=== PATIENT | female | born 2000 | race Caucasian/White ===

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

== ENCOUNTER 2021-06-05 17:18 | Emergency (ER) | payer MEDICAID ==
[~2021-06-05] VITALS: Ht 170.2 cm; Wt 90.7 kg
[~2021-06-05 17:18] MED LIST changes: +AMOX250S5 PO; +DEXAINTSOL PO; +HYDR15SO8 PO; +TETRACAINESUCKERS MT
[2021-06-05 17:47] LABS: BACTERIA,URINE FEW /HPF; BILIRUBIN,URINE NEGATIVE (NEGATIVE); CLARITY,URINE CLEAR; COLOR,URINE YELLOW; GLUCOSE, URINE (UA) NEGATIVE (NEGATIVE); KETONES,URINE NEGATIVE (NEGATIVE); LEUKOCYTE ESTERASE ,URINE NEGATIVE (NEGATIVE); NITRITE,URINE NEGATIVE (NEGATIVE); PH,URINE 6.5 (5-9); PROTEIN,URINE NEGATIVE (NEGATIVE); SQUAMOUS EPITHELIAL CELL,UR 25-50 /HPF
[2021-06-05] MEDS ORDERED: NS IV 1000 ML 1,000 ML IV STA (17:53)
[2021-06-05 18:00] VITALS: BP_SYST 138; BP_SYST 143; BP_SYST 154; BP_DIAS 45; BP_DIAS 69; BP_DIAS 84
--- NOTE | 2021-06-05 18:00 | ED General ---
General Chief Complaint: Female Reproductive Stated Complaint: IRREGULAR MENSTRUATION; SUPRAPUBIC PAIN Nursing Triage Note: PT ARRIVED BY PRIVATE VEHICLE WITH CHIEF COMPLAINT OF IRREGULAR MENSTRAUL AND ABDOMINAL PAIN. PT WAS ALERT, ORIENTED X 4 AND AMBULATORY. PT STATED WHEN SHE WAS YOUNGER SHE NEVER STARTED HER PERIOD, SO MARY KAY HA APRN, PUT HER ON CONTROL. SHE DID NOT LIKE THE EMOTIONAL SIDE EFFECTS OF CONTROL, SO TOLD MARY KAY SHE DID NOT WANT TO TAKE IT ANYMORE. PT ONE WEEK AGO STARTED SPOTTING AND YESTERDAY STARTED TO HAVE A PERIOD. SHE STATED SHE IS CHANGING HER TAMPONS EVERY 30 MINUTES TO ONE HOUR. PT STATED SHE IS HAVING BLOOD CLOTS, CRAMPS, SHARP PAINS. PT STATED HER PAIN WILL STARTS ON ONE SIDE AND WILL MOVE TO THE OTHER SIDE. PT DENIES ALLERGIES, SMOKING, ALCOHOL OR DRUG USE. PT'S VITALS WERE DONE. URINE WAS OBTAINED WITH BEDSIDE TEST. REPORT WAS GIVEN TO PROVIDER. Source of Information: Patient History of Present Illness Date Seen by Provider: Jun 05, 2021 Time Seen by Provider: 17:20 Initial Comments 20-year-old female presenting with diffuse abdominal pain and heavy menstrual bleeding. She states that she had been on control to make her have menstrual cycles and had been taken off about 6 to 12 months ago. Since then she had not had a period until she started bleeding this last week. She has been having clots and heavy menstrual bleeding. She has diffuse abdominal pain and discomfort. She is anxious and worried about losing too much blood. She has had 2 change her tampon every 1-2 hours. She has an appointment to see Mary Kay Ha for follow-up but could not get an appointment until June 16. Since she was feeling worse today she came to the emergency department as she was worried that she might be losing too much blood. She has denies any pain with urination. She has no nausea, vomiting, diarrhea, constipation, fever, chills. Timing/Duration: 1 Week Severity: Moderate Modifying Factors: worse with Movement Associated Systoms: No Chest Pain, No Cough, No Diaphoresis, No Fever/Chills, No Headaches, No Loss of Appetite; Malaise; No Nausea/Vomiting, No Seizure, No Shortness of Air, No Syncope Allergies and Home Medications Allergies Coded Allergies: No Known Drug Allergies (Unverified , 02/28/20) Home Medications Amoxicillin 250 Mg/5 Ml Susp, 1 TSP PO BID Prescribed by: LJ CHRISTENSEN on 03/13/20825 Dexamethasone 1 Mg/1 Ml Carrie, 2 TSP PO DAILY PRN for PAIN Mix 4MG/2.5CC water Prescribed by: LJ CHRISTENSEN on 03/13/20825 Hydrocodone/Acetaminophen 15 Ml Solution, 2-3 TSP PO Q4H 8 OZ BOTTLE Prescribed by: LJ CHRISTENSEN on 03/13/20825 Tetracaine Sucker Ea, 1 EA MT UD PRN for PAIN Tetracain Suckers These suckers are custom made and require a prescription. Moisten the sucker first and then suck on it gently as far back in the mouth as possible for 2-3 days. You can repeadt it in about an hour. This will take the edge off but not completely numb the throat. Prescribed by: LJ CHRISTENSEN on 03/13/20825 [ Control Pill] , 1 TAB PO DAILY, (Reported) Patient Home Medication List Home Medication List Reviewed: Yes Review of Systems Review of Systems Constitutional: No chills, No diaphoresis, No dizziness, No fever; malaise EENTM: no symptoms reported Respiratory: no symptoms reported Cardiovascular: palpitations Gastrointestinal: see HPI Genitourinary: see HPI Musculoskeletal: no symptoms reported Skin: no symptoms reported Psychiatric/Neurological: Anxiety Past Fihdqgg-Cretnj-Qmwcey Hx Patient Social History Tobacco Use?: No Smoking Status: Never a Smoker Substance use?: No Alcohol Use?: No Pt feels they are or have been: No Seasonal Allergies Seasonal Allergies: No Past Medical History Surgeries: Yes (WISDOM TEETH) Respiratory: No Currently Using CPAP: No Currently Using BIPAP: No Cardiac: No Neurological: No Female Reproductive Disorders: Denies Sexually Transmitted Disease: No HIV/AIDS: No Genitourinary: No Gastrointestinal: No Musculoskeletal: No Endocrine: No HEENT: Yes (GLASSES, HYPERTROPHY TONSILS AND ADENOIDS) Loss of Vision: Denies Hearing Impairment: Deaf Cancer: No Psychosocial: No Integumentary: No Blood Disorders: No Adverse Reaction/Blood Tranf: No (N/A) Physical Exam Vital Signs Vital Signs - First Documented 06/05/21 17:44 Temp 36.6 Pulse 120 Resp 16 B/P (MAP) 154/82 (106) Pulse Ox 100 O2 Delivery Room Air Capillary Refill : Less Than 3 Seconds Height, Weight, BMI Height: '" Weight: lbs. oz. kg; 31.00 BMI Method: General Appearance: Anxious, Obese HEENT: PERRL/EOMI, Pharynx Normal Neck: Full Range of Motion, Normal Inspection, Non Tender, Supple Respiratory: Chest Non Tender, Lungs Clear, Normal Breath Sounds, No Accessory Muscle Use, No Respiratory Distress Cardiovascular: Normal Peripheral Pulses, Tachycardia Gastrointestinal: Normal Bowel Sounds, No Pulsatile Mass, Soft; No Distended, No Guarding, No Rebound; Tenderness (Diffuse mild tenderness) Rectal: Deferred Back: No CVA Tenderness, No Vertebral Tenderness Extremity: Normal Capillary Refill, Normal Inspection, No Pedal Edema Neurologic/Psychiatric: Alert, Oriented x3 Skin: Normal Color, Warm/Dry Progress/Results/Core Measures Suspected Sepsis SIRS Temperature: Pulse: 120 Respiratory Rate: 16 Laboratory Tests 06/05/21 17:58: White Blood Count 9.4 Blood Pressure 154 /82 Mean: 106 Laboratory Tests 06/05/21 17:58: Creatinine 1.02, Platelet Count 332, Total Bilirubin 0.3 Results/Orders Lab Results Laboratory Tests Test 06/05/21 17:23 06/05/21 17:58 Range/Units Urine Color YELLOW Urine Clarity CLEAR Urine pH 6.5 5-9 Urine Specific [place] 1.015 L 1.016-1.022 Urine Protein NEGATIVE NEGATIVE Urine Glucose (UA) NEGATIVE NEGATIVE Urine Ketones NEGATIVE NEGATIVE Urine Nitrite NEGATIVE NEGATIVE Urine Bilirubin NEGATIVE NEGATIVE Urine Urobilinogen 1.0 < = 1.0 MG/DL Urine Leukocyte Esterase NEGATIVE NEGATIVE Urine RBC (Auto) NEGATIVE NEGATIVE Urine RBC NONE /HPF Urine WBC 10-25 H /HPF Urine Squamous Epithelial Cells 25-50 H /HPF Urine Crystals NONE /LPF Urine Bacteria FEW H /HPF Urine Casts NONE /LPF Urine Mucus LARGE H /LPF Urine Culture Indicated NO White Blood Count 9.4 4.3-11.0 10^3/uL Red Blood Count 4.74 3.80-5.11 10^6/uL Hemoglobin 14.4 11.5-16.0 g/dL Hematocrit 41 35-52 % Mean Corpuscular Volume 87 80-99 fL Mean Corpuscular Hemoglobin 30 25-34 pg Mean Corpuscular Hemoglobin Concent 35 32-36 g/dL Red Cell Distribution Width 12.0 10.0-14.5 % Platelet Count 332 130-400 10^3/uL Mean Platelet Volume 63.6 H 9.0-12.2 fL Immature Granulocyte % (Auto) 6 % Neutrophils (%) (Auto) 28 L 42-75 % Lymphocytes (%) (Auto) 7 L 12-44 % Monocytes (%) (Auto) 1 0-12 % Eosinophils (%) (Auto) 1 0-10 % Basophils (%) (Auto) 0 0-10 % Neutrophils # (Auto) 2.7 1.8-7.8 X 10^3 Lymphocytes # (Auto) 0.7 L 1.0-4.0 X 10^3 Monocytes # (Auto) 0.1 0.0-1.0 X 10^3 Eosinophils # (Auto) 0.1 0.0-0.3 10^3/uL Basophils # (Auto) 0.0 0.0-0.1 10^3/uL Sodium Level 138 135-145 MMOL/L Potassium Level 3.7 3.6-5.0 MMOL/L Chloride Level 102 98-107 MMOL/L Carbon Dioxide Level 24 21-32 MMOL/L Anion Gap 12 5-14 MMOL/L Blood Urea Nitrogen 9 7-18 MG/DL Creatinine 1.02 0.60-1.30 MG/DL Estimat Glomerular Filtration Rate 70 BUN/Creatinine Ratio 9 Glucose Level 112 H 70-105 MG/DL Calcium Level 9.5 8.5-10.1 MG/DL Corrected Calcium 8.5-10.1 MG/DL Total Bilirubin 0.3 0.1-1.0 MG/DL Aspartate Amino Transf (AST/SGOT) 14 5-34 U/L Alanine Aminotransferase (ALT/SGPT) 15 0-55 U/L Alkaline Phosphatase 66 40-136 U/L Total Protein 7.4 6.4-8.2 GM/DL Albumin 4.6 H 3.2-4.5 GM/DL Lipase 50 8-78 U/L My Orders Orders - WIL WAYNE MD Ua Culture If Indicated (06/05/21 17:30) Urine Bedside (06/05/21 17:30) Comprehensive Metabolic Panel (06/05/21 17:52) Lipase (06/05/21 17:52) Ed Iv/Invasive Line Start (06/05/21 17:52) Cbc With Automated Diff (06/05/21 17:52) Ct Abdomen/Pelvis W (06/05/21 17:52) Protime With Inr (06/05/21 17:52) Partial Thromboplastin Time (06/05/21 17:52) Ns Iv 1000 Ml (Sodium Chloride 0.9%) (06/05/21 17:53) Orthostatic Vital Signs (Adult (06/05/21 17:53) Iohexol Injection (Omnipaque 350 Mg/Ml 1 (06/05/21 18:15) Received Contrast (Hold Metformin- Contr (06/05/21 18:15) Sodium Chloride Flush (Catheter Flush Sy (06/05/21 18:15) Ns (Ivpb) (Sodium Chloride 0.9% Ivpb Bag (06/05/21 18:15) Iohexol Injection (Omnipaque 350 Mg/Ml 1 (06/05/21 18:45) Received Contrast (Hold Metformin- Contr (06/05/21 18:45) Ns (Ivpb) (Sodium Chloride 0.9% Ivpb Bag (06/05/21 18:45) Medications Given in ED Current Medications Medications Dose Ordered Sig/Ada Route Start Time Stop Time Status Last Admin Dose Admin Iohexol 100 ml ONCE ONCE IV 06/05/21 18:15 06/05/21 18:16 DC 06/05/21 18:41 100 ML Iohexol 100 ml ONCE ONCE IV 06/05/21 18:45 06/05/21 19:14 DC 06/05/21 18:52 100 ML Sodium Chloride 10 ml NEEDED PRN IV 06/05/21 18:15 06/05/21 18:41 10 ML Sodium Chloride 100 ml ONCE ONCE IV 06/05/21 18:15 06/05/21 18:16 DC 06/05/21 18:41 100 ML Sodium Chloride 100 ml ONCE ONCE IV 06/05/21 18:45 06/05/21 19:14 DC 06/05/21 18:52 80 ML Vital Signs/I&O 06/05/21 06/05/21 17:44 18:00 Temp 36.6 Pulse 120 97 96 124 Resp 16 B/P (MAP) 154/82 (106) 143/69 (93) 154/84 (107) 138/45 (76) Pulse Ox 100 O2 Delivery Room Air Capillary Refill : Less Than 3 Seconds Blood Pressure Mean: 106 Progress Note #1: Progress Note Urine test was negative. The urinalysis did not demonstrate any blood or sign of infection. With her heart rate elevated on arrival will obtain orthostatic vital signs. Ordered basic labs with coags and a CT scan to evaluate her diffuse abdominal pain. It is possible she could have a hemorrhagic ovarian cyst, colitis, gastritis, cholecystitis, diverticulitis, pyelonephritis, urinary tract infection. Progress Note #2: Progress Note Labs are stable without anemia. Her hemoglobin is 14.4 similar to the 13.5 she had in February 2020 prior to surgery for her tonsils. She does have normal platelet count but elevated platelet volume. Chemistry without acute significant abnormality. CT scan does not show any acute significant abnormality to account for her symptoms. She has mild increase in stool in colon. She has a Tampon inserted in vagina. Uterus normal in size. Counseled patient on results and need for follow-up. We will give an outpatient order for ultrasound but also advised that she did check with the [facility] and TIARA Ha first thing Monday if she wanted to wait and talk to them. Diagnostic Imaging Diagonstic Imaging: CT Plain Films/CT/US/NM/MRI: abdomen, pelvis Comments [facility] [place], [place] NAME: MANOJ REICH [facility] REC#: [id number] PT STATUS: REG ER : 2000 PHYSICIAN: WIL WAYNE MD ADMIT DATE: 06/05/21/ER FS Draft Date of Exam:06/05/21 CT ABDOMEN/PELVIS W PROCEDURE: CT abdomen and pelvis with contrast. TECHNIQUE: Multiple contiguous axial images were obtained through the abdomen and pelvis after administration of intravenous contrast. Auto Exposure Controls were utilized during the CT exam to meet ALARA standards for radiation dose reduction. All CT scans use one or more of the following dose optimizing techniques: automated exposure control, MA and/or KvP adjustment based on patient size and exam type or iterative reconstruction. INDICATION: Diffuse abdominal pain. Heavy menstrual bleeding. COMPARISON: None. FINDINGS: The lung bases are clear. The heart is normal in size. There is no pericardial effusion. The liver demonstrates no focal lesion. The spleen is normal. The pancreas is normal. A small splenule is noted. The adrenal glands appear normal. The kidneys demonstrate no hydronephrosis or abnormal enhancement. The appendix is normal. There is moderate stool in the ascending and transverse colon. No bowel wall thickening is seen. The bowel loops are nondistended without obstruction. No adenopathy is seen. A tampon is noted. The uterus appears normal in size with no uterine mass seen. There is no evidence of endometrial thickening. The urinary bladder is decompressed. No acute osseous abnormality is seen. IMPRESSION: Moderate stool in the proximal colon with no acute abnormality identified in the abdomen or pelvis. Dictated on workstation # [id number] Dict: 06/05/211853 Trans: 06/05/211857 [id number] Interpreted by: RUSS COOMBS MD Electronically signed by: Departure Impression Primary Impression: Heavy menstrual bleeding Qualified Codes: N92.1 - Excessive and frequent menstruation with irregular cycle Additional Impression: Diffuse abdominal pain Disposition: HOME, SELF-CARE Condition: Stable Departure-Patient Inst. Decision time for Depature: 19:29 Referrals: NO,LOCAL PHYSICIAN (PCP) Primary Care Physician MARY KAY HA APRN (Family) Primary Care Physician Patient Instructions: Heavy Periods ED, Abdominal Pain, Adult ED Add. Discharge Instructions: Call Radiology scheduling at [phone] to set up ultrasound to look at ovaries and uterus to see if there is a reason for your heavy irregular bleeding. You could call [facility] and TIARA Ha Monday to let them know you had more severe symptoms and had to go to the ER over the weekend. See if they want to move up your appointment sooner than June 16 or get you set up for Ultrasound and blood work with [facility]. You could try taking Acetaminophen 650 mg every 6 hours as needed for pain or Aleve (Naproxen) 2 tabs twice a day to help with pain until you are seen for follow up. All discharge instructions reviewed with patient and/or family. Voiced understanding. WIL AWYNE MD Jun 05, 2021 18:00
[2021-06-05 18:07] LABS: HEMOGLOBIN 14.4 g/dL (11.5-16.0); MEAN CORPUSCULAR HEMOGLOBIN 30 pg (25-34); WHITE BLOOD COUNT 9.4 10^3/uL (4.3-11.0)
[2021-06-05 18:08] LABS: BASOPHILS % (AUTO) 0 % (0-10); EOSINOPHILS # (AUTO) 0.1 10^3/uL (0.0-0.3); EOSINOPHILS % (AUTO) 1 % (0-10); HEMATOCRIT 41 % (35-52); LYMPHOCYTES # (AUTO) 0.7 X 10^3 (1.0-4.0); LYMPHOCYTES % (AUTO) 7 % (12-44); MEAN CORPUSCULAR HGB CONC 35 g/dL (32-36); MEAN CORPUSCULAR VOLUME 87 fL (80-99); MEAN PLATELET VOLUME 63.6 fL (9.0-12.2); MONOCYTES # (AUTO) 0.1 X 10^3 (0.0-1.0); MONOCYTES % (AUTO) 1 % (0-12); NEUTROPHILS # (AUTO) 2.7 X 10^3 (1.8-7.8); NEUTROPHILS % (AUTO) 28 % (42-75); PLATELET COUNT 332 10^3/uL (130-400)
[2021-06-05] MEDS ORDERED: IOHEXOL 350 MG/ML 100 ML (OMNIPAQUE 350) VIAL IV ONE ×2 (18:15→18:45)
[2021-06-05] MEDS ORDERED: CATHETER FLUSH 10 ML SYR IV PRN (18:15)
[2021-06-05] MEDS ORDERED: HOLD METFORMIN - RECEIVED CONTRAST 20 ML VIAL IV SCH ×2 (18:15→18:45)
[2021-06-05] MEDS ORDERED: NS 100 ML (IVPB) BAG IV ONE ×2 (18:15→18:45)
[2021-06-05 18:26] LABS: ALANINE AMINOTRANSFERASE 15 U/L (0-55); ALBUMIN 4.6 GM/DL (3.2-4.5); ALKALINE PHOSPHATASE 66 U/L (40-136); BILIRUBIN,TOTAL 0.3 MG/DL (0.1-1.0); BUN/CREATININE RATIO 9; CALCIUM 9.5 MG/DL (8.5-10.1); CARBON DIOXIDE 24 MMOL/L (21-32); CHLORIDE 102 MMOL/L (98-107); CREATININE SERUM 1.02 MG/DL (0.60-1.30); GFR ESTIMATED 70; GLUCOSE 112 MG/DL (70-105); LIPASE 50 U/L (8-78); POTASSIUM 3.7 MMOL/L (3.6-5.0); SODIUM 138 MMOL/L (135-145); TOTAL PROTEIN 7.4 GM/DL (6.4-8.2)
--- NOTE | 2021-06-05 18:59 | Diagnostic Imaging Report ---
PROCEDURE: CT abdomen and pelvis with contrast. TECHNIQUE: Multiple contiguous axial images were obtained through the abdomen and pelvis after administration of intravenous contrast. Auto Exposure Controls were utilized during the CT exam to meet ALARA standards for radiation dose reduction. All CT scans use one or more of the following dose optimizing techniques: automated exposure control, MA and/or KvP adjustment based on patient size and exam type or iterative reconstruction. INDICATION: Diffuse abdominal pain. Heavy menstrual bleeding. COMPARISON: None. FINDINGS: The lung bases are clear. The heart is normal in size. There is no pericardial effusion. The liver demonstrates no focal lesion. The spleen is normal. The pancreas is normal. A small splenule is noted. The adrenal glands appear normal. The kidneys demonstrate no hydronephrosis or abnormal enhancement. The appendix is normal. There is moderate stool in the ascending and transverse colon. No bowel wall thickening is seen. The bowel loops are nondistended without obstruction. No adenopathy is seen. A tampon is noted. The uterus appears normal in size with no uterine mass seen. There is no evidence of endometrial thickening. The urinary bladder is decompressed. No acute osseous abnormality is seen. IMPRESSION: Moderate stool in the proximal colon with no acute abnormality identified in the abdomen or pelvis. Dictated by: Dictated on workstation # [id number]
[2021-06-05 19:40] VITALS: BP 166/90
== END 2021-06-05 19:42 | disposition home or self-care (01) ==
LOC: EDUNIT# 17:18 → ER FS 17:20
DX: N92.1 Excessive and frequent menstruation with irregular cycle (principal); R10.84 Generalized abdominal pain; E66.9 Obesity, unspecified
CPT/HCPCS: 74177; 80053; 81000; 83690; 84703

== ENCOUNTER 2023-04-05 18:13 | Emergency (ER) | payer MEDICAID ==
[~2023-04-05] VITALS: Ht 172 cm; Wt 135.0 kg
[2023-04-05 18:19] VITALS: BP 149/73
[2023-04-05] MEDS ORDERED: LIDOCAINE/EPI 2% 1:100,00 (XYLOCAINE) 20 ML VIAL ONE (18:29)
[2023-04-05] MEDS ORDERED: LIDOCAINE 1% INJ 20 ML VIAL ONE (18:30)
--- NOTE | 2023-04-05 18:31 | ED Upper Extremity ---
General Chief Complaint: Laceration Stated Complaint: RING FINGER LAC Nursing Triage Note: Patient has presented to ER with cc of left ring finger laceration - she cut with a kitchen knife while cutting onions. History of Present Illness Date Seen by Provider: Apr 05, 2023 Time Seen by Provider: 18:22 Initial Comments 42-year-old female is here with complaints of left ring finger laceration where she sliced off the tip of her finger with a small portion of the nail while she was cutting onions with a kitchen knife. Moderate bleeding which is controlled. Patient is right-hand dominant. Allergies and Home Medications Allergies Coded Allergies: No Known Drug Allergies (Unverified , 02/28/20) Patient Home Medication List Home Medication List Reviewed: Yes Amoxicillin (Amoxicillin) 250 Mg/5 Ml Susp, 1 TSP PO BID Prescribed by: LJ CHRISTENSEN on 03/13/20 08 Dexamethasone (Decadron Intensol Oral Solution (Repackaging)) 1 Mg/1 Ml Carrie, 2 TSP PO DAILY PRN for PAIN Prescribed by: LJ CHRISTENSEN on 03/13/20 08 Hydrocodone/Acetaminophen (Hydrocodon-Acetamin 7.5-325/15 ML) 15 Ml Solution, 2- 3 TSP PO Q4H Prescribed by: LJ CHRISTENSEN on 03/13/20 0826 Tetracaine (Tetracaine Suckers) Sucker Ea, 1 EA MT UD PRN for PAIN Prescribed by: LJ CHRISTENSEN on 03/13/20 0826 [ Control Pill] , 1 TAB PO DAILY, (Reported) Entered as Reported by: SUMAN ALVAREZ on 02/28/20 1102 Review of Systems Constitutional: no symptoms reported Skin: see HPI, other (Left fourth finger laceration, ) Past Pjgswfv-Janjuj-Jimhdg Hx Patient Social History Tobacco Use?: Yes Use of E-Cig and/or Vaping dev: Yes Substance use?: No Alcohol Use?: No Seasonal Allergies Seasonal Allergies: No Past Medical History Surgeries: Yes (WISDOM TEETH) Respiratory: No Currently Using CPAP: No Currently Using BIPAP: No Cardiac: No Neurological: No Female Reproductive Disorders: Denies Sexually Transmitted Disease: No HIV/AIDS: No Genitourinary: No Gastrointestinal: No Musculoskeletal: No Endocrine: No HEENT: Yes (GLASSES, HYPERTROPHY TONSILS AND ADENOIDS) Loss of Vision: Denies Hearing Impairment: Deaf Cancer: No Psychosocial: No Integumentary: No Blood Disorders: No Adverse Reaction/Blood Tranf: No (N/A) Physical Exam Vital Signs Vital Signs - First Documented 04/05/23 18:19 Temp 36.5 Pulse 88 Resp 16 B/P (MAP) 149/73 (98) Pulse Ox 99 O2 Delivery Room Air Capillary Refill : Height, Weight, BMI Height: '" Weight: lbs. oz. kg; 45.00 BMI Method: General Appearance: WD/WN, no apparent distress HEENT: PERRL/EOMI Hand: Left (left 4th fingertip, dorsal surface 0.25mm sliced off with a tiny triangular chip of nail as well. Bleeding controlled. NV bundle intact. ROM unrestricted. Bone not affected. ) Neurologic/Tendon: normal sensation, normal motor functions, normal tendon functions, no evidence tendon injury Neurologic/Psychiatric: no motor/sensory deficits, alert, oriented x 3 Progress/Results/Core Measures Results/Orders My Orders Orders - KYA MULLER MD Lidocaine/Epi 2% 1:100,000 (Xylocaine/Ep (04/05/23 18:29) Lidocaine 1% Inj 20 Ml (Xylocaine 1% Inj (04/05/23 18:30) Medications Given in ED Current Medications Medications Dose Ordered Sig/Ada Route Start Time Stop Time Status Last Admin Dose Admin Lidocaine HCl 20 ml STK-MED ONCE .ROUTE 04/05/23 18:30 04/05/23 18:34 DC 04/05/23 18:36 20 ML Lidocaine/ Epinephrine 20 ml STK-MED ONCE .ROUTE 04/05/23 18:29 04/05/23 18:34 DC 04/05/23 18:36 20 ML Vital Signs/I&O 04/05/23 18:19 Temp 36.5 Pulse 88 Resp 16 B/P (MAP) 149/73 (98) Pulse Ox 99 O2 Delivery Room Air Blood Pressure Mean: 98 Progress Progress Note : Progress Note 1. LEFT 4th FINGERTIP AVULSION: - No bone involvement - Tetanus up to date - Plan was to inject fingertip with lido but pt refused injections. - Bleeding ceased with pressure - Irrigation of wound with NS, and Bacitracin ointment and dressing placed - Wound instructions given - Advised ibuprofen as needed for pain and ice application - Follow up with PCP in 7 days for follow up for wound - Avoid lakes and pools until wound is healed. Departure Impression Primary Impression: Fingertip avulsion Qualified Codes: S61.209A - Unspecified open wound of unspecified finger without damage to nail, initial encounter Disposition: HOME, SELF-CARE Condition: Stable Departure-Patient Inst. Referrals: NO,LOCAL PHYSICIAN (PCP) Primary Care Physician MARY KAY HA APRN (Family) Primary Care Physician Patient Instructions: Wound Care, Wound Care (DC) Add. Discharge Instructions: - Wound instructions given - Advised ibuprofen as needed for pain and ice application - Follow up with PCP in 7 days for follow up for wound - Avoid lakes and pools until wound is healed. All discharge instructions reviewed with patient and/or family. Voiced understanding. KYA MULLER MD Apr 05, 2023 18:31
== END 2023-04-05 18:50 | disposition home or self-care (01) ==
LOC: EDUNIT# 18:13 → ER FS 18:15
DX: S61.305A Unspecified open wound of left ring finger with damage to nail, initial encounter (principal); F17.290 Nicotine dependence, other tobacco product, uncomplicated; W26.0XXA Contact with knife, initial encounter; Y93.G1 Activity, food preparation and clean up
CPT/HCPCS: 99281